=== PATIENT | female | born 1975 | race Caucasian/White ===

== ENCOUNTER → 2016-03-28 | Emergency (ER) | payer BC ==
[2016-03-28] VITALS (9 sets, daily range): BP systolic 78–123; RESP 12–22; TEMP 98–98.8
[~2016-03-28] MED LIST: BUPIVACA/EPI 0.25% PF 30ML NERVEBLOCK ONE; CEFAZOLIN 1,000 MG VIAL ONE; DILAUDID 1 MG/ML AMP IV PRN; DILAUDID 2 MG TAB PO PRN; FENTANYL 100 MCG/2 ML AMP IV ONE; GLYCOPYRROLATE 0.2 MG/ML VIAL IV ONE; LACT RINGERS 1,000 ML IV SCH; LIDOCAINE 1% BUFFERED 1 ML SYR INTRADERM PRN; MEPERIDINE 25 MG/ML IV ONE; MEPERIDINE 25 MG/ML IV PRN; MIDAZOLAM 2 MG/2 ML INJ IV ONE; MIDAZOLAM 2 MG/2 ML INJ ONE; MORPHINE 2 MG/ML SYR IV PRN; MORPHINE 4 MG/ML SYR IV PRN; NEOSTIGMINE 10 MG/10 ML VIAL IV ONE; ONDANSETRON 4 MG VIAL IV PRN; OPTIRAY 350 100 ML VIAL HMH IV ONE; OXYCODONE 5 MG TAB PO PRN; PIPER/TAZO 3.375 GM PYXIS ONE; PROPOFOL 20 ML PER ML IV ONE; ROCURONIUM 50 MG VIAL IV ONE; SODIUM CHLORIDE 0.9% 1,000 ML ONE; SODIUM CHLORIDE 0.9% 100 ML IV ONE
== END | disposition home or self-care (01) ==
LOC: ER 10:51
CPT/HCPCS: 36415; 74177; 80053; 81003; 83690; 84703; 85025; 88304; 96361; 96365